=== PATIENT | female | born 1995 | race Caucasian/White ===

== ENCOUNTER 2019-05-25 15:27 | Emergency (ER) | payer BC ==
[2019-05-25 15:41] VITALS: BP 127/83; PULSE 80; O2SAT 96
--- NOTE | 2019-05-25 15:57 | ERPHSYRPT ---
- History of Present Illness Time Seen by Provider: 05/25/19 15:42 Source: patient Exam Limitations: no limitations Patient Subjective Stated Complaint: Pt was taking out the garbage and got cut with a piece of glass from a coffee pot on the right elbow, she stated that she feels like a piece is still in there, reports that her arm is numb Triage Nursing Assessment: Pt reports that her arm is more uncomfortable than pain, vitals wnl, doesn't appear to be in any distress, pulses normal Physician History: 23-year-old white female arrives with complaint of laceration to her right elbow since just prior to arrival she states she was taking out garbage and she lacerated her right elbow she's not sure she has glass in her elbow or not. He states he has tingling in her right arm like she hit her funny bone. She's not had any problems moving she can feel all of her fingers move all her fingers hand wrist elbow. Past medical history negative. Past surgical history negative. Patient does state she has a Mirina in place Occurred: just prior to arrival Method of Injury: other (lacerated her elbow on glass taking out the garbage.) Severity of Pain-Max: mild Severity of Pain-Current: mild Extremities Pain Location: elbow: right Modifying Factors: Improves With: nothing Associated Symptoms: none Allergies/Adverse Reactions: fentanyl Allergy (Verified 05/25/19 15:41) Home Medications: Sertraline HCl 50 mg PO DAILY 05/25/19 [History] Spironolactone 50 mg PO BID 05/25/19 [History] Hx Tetanus, Diphtheria Vaccination/Date Given: (highschool) - Review of Systems Constitutional: No Fever, No Chills Eyes: No Symptoms Ears, Nose, & Throat: No Symptoms Respiratory: No Cough, No Dyspnea Cardiac: No Chest Pain, No Edema, No Syncope Abdominal/Gastrointestinal: No Abdominal Pain, No Nausea, No Vomiting, No Diarrhea Genitourinary Symptoms: No Dysuria Musculoskeletal: Other (laceration right elbow) Skin: No Rash Neurological: Parasthesia (paresthesia right arm), No Dizziness, No Focal Weakness, No Sensory Changes Psychological: No Symptoms Endocrine: No Symptoms All Other Systems: Reviewed and Negative - Past Medical History Pertinent Past Medical History: Yes Psycho-Social History: Anxiety Female Reproductive Disorders: Other - Past Surgical History Past Surgical History: Yes Female Surgical History: Hysterectomy - Social History Smoking Status: Never smoker Exposure to second hand smoke: No Drug Use: none Patient Lives Alone: No - Female History Hx Now: No (lanettena) - Nursing Vital Signs Nursing Vital Signs: Initial Vital Signs Temperature 98.0 F 05/25/19 15:34 Pulse Rate 80 05/25/19 15:34 Blood Pressure 127/83 05/25/19 15:34 O2 Sat by Pulse Oximetry 96 05/25/19 15:34 Pain Scale Pain Intensity 4 - Physical Exam General Appearance: alert Eyes, Ears, Nose, Throat Exam: moist mucous membranes Neck Exam: non-tender, supple Cardiovascular/Respiratory Exam: chest non-tender, normal breath sounds, regular rate/rhythm, no respiratory distress Abdominal Exam: non-tender, No guarding Back Exam: normal inspection, No vertebral tenderness Shoulder Exam: normal inspection, non-tender, no evidence of injury, normal ROM Elbow/Forearm Exam: No normal inspection (lless than 1 cm fairly superficial llaceration right elbow just medial to olecranon, no foreign body noted. Full range of motion right elbow wrist hand ) Wrist Exam: normal inspection, non-tender, no evidence of injury, normal ROM Hand Exam: normal inspection, non-tender, no evidence of injury, normal ROM DTR - Upper Extremity Exam: tricep (R): 2+, tricep (L): 2+ Neuro/Tendon Exam: normal sensation, normal motor functions, normal tendon functions, no evidence tendon injury, No motor deficit, No sensory deficit Mental Status Exam: alert, oriented x 3, cooperative Skin Exam: other (less than 1 cm fairly superficial laceration right arm just medial to the olecranon) SpO2 Interpretation: normal (96%) SpO2: 96 - Course Nursing assessment & vital signs reviewed: Yes - Radiology Exams Right Elbow X-ray Interpretation: Interpreted by me (xray right elbow: no foreign body noted ) Ordered Tests: Active Orders 24 hr Category Date Time Status Wound Care STAT Care 05/25/19 16:19 Active ELBOW (MINIMUM 3 VIEWS) Stat Exams 05/25/19 15:49 Taken - Progress Progress: improved Progress Note: 05/25/19 15:54 23-year-old white female arrives with complaint of laceration to her right elbow she states she suffered this when taking out the garbage. She states that she is having some paresthesia to her right arm after striking her elbow feels like she hit her funny bone. Patient with full range of motion to the right upper extremity dietary assistant strength is intact 5 over 5 in the right. Sensation is intact to all fingers radial and ulnar pulses are intact two over four good capillary refill to all fingers. Patient does feel like she has a decent glass in her elbow however cannot feel this. She has a fairly superficial laceration less than 1 cm on her right posterior elbow medial to the olecranon. Will x-ray the patient's right elbow to rule out foreign body. Will have nurse clean the area and apply asteristrip dtap will be updated. 05/25/19 16:20 - Departure Departure Disposition: Home Clinical Impression: Laceration of right elbow Qualifiers: Encounter type: initial encounter Qualified Code(s): S51.011A - Laceration without foreign body of right elbow, initial encounter Condition: Fair Critical Care Time: No Referrals: CYRUS HARRIS SUPPLY PLANNER [Primary Care Provider] - Additional Instructions: Return home. Keep area clean and dry. Followup with your family DrMoy or return if problems.
[2019-05-25] MEDS ORDERED: Adacel Vial IM ONE ×2 (16:19→16:53)
--- NOTE | 2019-05-25 16:21 | XRAY ---
Indication: Laceration. Comparison: None 3 views of the right elbow obtained. No bony, articular, or soft tissue abnormalities.
== END 2019-05-25 17:29 | disposition home or self-care (01) ==
LOC: ED 15:27
DX: S51.011A Laceration without foreign body of right elbow, initial encounter (principal); W25.XXXA Contact with sharp glass, initial encounter; Y93.89 Activity, other specified
CPT/HCPCS: 73080; 90471; 90715; 99283

== ENCOUNTER 2019-11-28 18:33 | Emergency (ER) | payer BC ==
[2019-11-28 18:51] VITALS: O2SAT 96
[2019-11-28] MEDS ORDERED: Sodium Chloride 0.9% 1000 ML 1,000 ML IV STA (18:58)
--- NOTE | 2019-11-28 19:24 | ERPHSYRPT ---
- History of Present Illness Time Seen by Provider: 11/28/19 19:01 Patient Subjective Stated Complaint: Pt states "for the past 7 days I have had diarrhea and some nausea and vomiting. Now the pain in my belly has gone into my back kind of where my kidney is on the right side." Triage Nursing Assessment: Pt presented alert and oriented X 3, skin pwd Pt ambulates with an upright steady gait, able to speak in clear full sentences pt in no apparent respiratory distress. Physician History: 24 yo F woth initial epigastric pain 1 wk ago. Fever initially with N,V and D. pain now in R abd and flank. Patient denies any nominal surgery other than a C- section. She has had a TNA and nasal reconstruction. Timing/Duration: week(s) (1), worse Activities at Onset: none Quality: cramping, stabbing Abdominal Pain Onset Location: epigastric Pain Radiation: RUQ, RLQ, flank (Right) Severity of Pain-Max: moderate Severity of Pain-Current: moderate Modifying Factors: Improves With: nothing Associated Symptoms: diarrhea, fever/chills, nausea, vomiting Previous symptoms: no prior history Allergies/Adverse Reactions: fentanyl Allergy (Verified 05/25/19 15:41) Home Medications: Sertraline HCl 50 mg PO DAILY 05/25/19 [History] Spironolactone 50 mg PO BID 05/25/19 [History] Hx Tetanus, Diphtheria Vaccination/Date Given: Yes Hx Influenza Vaccination/Date Given: Yes Hx Pneumococcal Vaccination/Date Given: No Immunizations Up to Date: Yes - Review of Systems Constitutional: No Fever, No Chills Eyes: No Symptoms Ears, Nose, & Throat: No Symptoms Respiratory: No Cough, No Dyspnea Cardiac: No Chest Pain, No Edema, No Syncope Abdominal/Gastrointestinal: Abdominal Pain, Nausea, Vomiting, Diarrhea Genitourinary Symptoms: No Dysuria Musculoskeletal: No Back Pain, No Neck Pain Skin: No Rash Neurological: No Dizziness, No Focal Weakness, No Sensory Changes Psychological: No Symptoms Endocrine: No Symptoms All Other Systems: Reviewed and Negative - Past Medical History Pertinent Past Medical History: Yes Neurological History: No Pertinent History ENT History: No Pertinent History Cardiac History: No Pertinent History Respiratory History: No Pertinent History Endocrine Medical History: No Pertinent History Musculoskeletal History: No Pertinent History GI Medical History: No Pertinent History History: No Pertinent History Psycho-Social History: Anxiety Female Reproductive Disorders: Other Other Medical History: PCOS - Past Surgical History Past Surgical History: Yes Female Surgical History: Hysterectomy Other Surgical History: c section. tonsils and adnoids. - Social History Smoking Status: Never smoker Exposure to second hand smoke: Yes Drug Use: none Patient Lives Alone: No - Female History Hx Last Menstrual Period: mirena Hx Now: (unknown) - Nursing Vital Signs Nursing Vital Signs: Initial Vital Signs Temperature 98.2 F 11/28/19 18:46 Pulse Rate 104 H 11/28/19 18:46 Respiratory Rate 18 11/28/19 18:46 Blood Pressure 141/90 11/28/19 18:46 O2 Sat by Pulse Oximetry 96 11/28/19 18:46 Pain Scale Pain Intensity 7 - Physical Exam General Appearance: no apparent distress, alert Eye Exam: PERRL/EOMI, eyes nml inspection Ears, Nose, Throat Exam: normal ENT inspection, pharynx normal, moist mucous membranes Neck Exam: normal inspection, non-tender, supple, full range of motion Respiratory Exam: normal breath sounds, lungs clear, No respiratory distress Cardiovascular Exam: regular rate/rhythm, normal heart sounds Gastrointestinal/Abdomen Exam: tenderness (R side of abd and R flank), mass, guarding, rebound Pelvic Exam: not done Back Exam: normal inspection, normal range of motion, No CVA tenderness, No vertebral tenderness Extremity Exam: normal inspection, normal range of motion, pelvis stable Neurologic Exam: alert, oriented x 3, cooperative, normal mood/affect, nml cerebellar function, sensation nml, No motor deficits Skin Exam: normal color, warm, dry SpO2: 96 - Course Nursing assessment & vital signs reviewed: Yes - Radiology Exams Chest X-ray Interpretation: Interpreted by me, Negative - CT Exams Abdomen/Pelvis CT Interpretation: No appendicitis, Other (CT other than the incidental finding of a 3 cm left ovarian cyst IUD in situ is negative Dr. Ramírez) Ordered Tests: Active Orders 24 hr Category Date Time Status IV Insertion STAT Care 11/28/19 18:58 Active ABDOMEN AND PELVIS W/0 CONTRAS [CT] Stat Exams 11/28/19 18:58 Taken CHEST 1 VIEW (PORTABLE) Stat Exams 11/28/19 18:58 Taken AMYLASE Stat Lab 11/28/19 19:35 Completed CBC W DIFF Stat Lab 11/28/19 19:35 Completed CMP Stat Lab 11/28/19 19:35 Completed HCG QUALITATIVE,SERUM Stat Lab 11/28/19 19:35 Completed LIPASE Stat Lab 11/28/19 19:35 Completed Lactic Acid Stat Lab 11/28/19 20:15 Completed PROTIME WITH INR Stat Lab 11/28/19 19:35 Completed UA W/RFX UR CULTURE Stat Lab 11/28/19 19:16 Completed Medication Summary Discontinued Medications Generic Name Dose Route Start Last Admin Trade Name Freq PRN Reason Stop Dose Admin Sodium Chloride 1,000 mls @ 999 mls/hr 11/28/19 18:58 11/28/19 19:51 Sodium Chloride 0.9% 1000 Ml IV 11/28/19 19:58 999 mls/hr .Q1H1M STA Administration Sodium Chloride Confirm 11/28/19 19:50 Sodium Chloride 0.9% 1000 Ml Administered 11/28/19 19:51 Dose 1,000 mls @ ud .ROUTE .STK-MED ONE Ondansetron HCl 4 mg 11/28/19 20:26 11/28/19 20:43 Zofran 4 Mg/2 Ml Vial IV 11/28/19 20:27 4 mg STAT ONE Administration Ondansetron HCl Confirm 11/28/19 20:42 Zofran 4 Mg/2 Ml Vial Administered 11/28/19 20:43 Dose 4 mg .ROUTE .STK-MED ONE Lab/Rad Data: Laboratory Result Diagrams 11/28/19 19:35 11/28/19 19:35 Laboratory Results 11/28/19 11/28/19 11/28/19 Range/Units 20:15 19:35 19:35 WBC (4.0-10.5) K/mm3 RBC (4.1-5.4) M/mm3 Hgb (12.0-16.0) gm/dl Hct (35-47) % MCV (78-100) fl MCH (26-32) pg MCHC (32-36) g/dl RDW (11.5-14.0) % Plt Count (150-450) K/mm3 MPV (7.5-11.0) fl Gran % (36.0-66.0) % Eos # (Auto) (0-0.5) Absolute Lymphs (auto) (1.0-4.6) Absolute Monos (auto) (0.0-1.3) Lymphocytes % (24.0-44.0) % Monocytes % (0.0-12.0) % Eosinophils % (0.00-5.0) % Basophils % (0.0-0.4) % Absolute Granulocytes (1.4-6.9) Basophils # (0-0.4) PT 15.2 H (9.95-12.35) SECONDS INR 1.34 (0.8-3.0) Sodium (137-145) mmol/L Potassium (3.5-5.1) mmol/L Chloride (98-107) mmol/L Carbon Dioxide (22-30) mmol/L Anion Gap (5-15) MEQ/L BUN (7-17) mg/dL Creatinine (0.52-1.04) mg/dL Estimated GFR ML/MIN Glucose (74-106) mg/dL Lactic Acid 0.9 (0.4-2.0) Calcium (8.4-10.2) mg/dL Total Bilirubin (0.2-1.3) mg/dL AST (14-36) U/L ALT (0-35) U/L Alkaline Phosphatase (38-126) U/L Serum Total Protein (6.3-8.2) g/dL Albumin (3.5-5.0) g/dL Amylase (30-110) U/L Lipase (23-300) U/L Serum , Qual NEGATIVE (Negative) Urine Color (YELLOW) Urine Appearance (CLEAR) Urine pH (5-6) Ur Specific [place] (1.005-1.025) Urine Protein (Negative) Urine Ketones (NEGATIVE) Urine Blood (0-5) Gagandeep/ul Urine Nitrite (NEGATIVE) Urine Bilirubin (NEGATIVE) Urine Urobilinogen (0-1) mg/dL Ur Leukocyte Esterase (NEGATIVE) Urine WBC (Auto) (0-5) /HPF Urine RBC (Auto) (0-2) /HPF U Epithel Cells (Auto) (FEW) /HPF Urine Bacteria (Auto) (NEGATIVE) /HPF Urine Mucus (Auto) (NEGATIVE) /HPF Urine Culture Reflexed (NO) Urine Glucose (NEGATIVE) mg/dL 11/28/19 11/28/19 11/28/19 Range/Units 19:35 19:35 19:16 WBC 10.7 H (4.0-10.5) K/mm3 RBC 4.20 (4.1-5.4) M/mm3 Hgb 13.0 (12.0-16.0) gm/dl Hct 38.3 (35-47) % MCV 91.2 (78-100) fl MCH 31.0 (26-32) pg MCHC 33.9 (32-36) g/dl RDW 12.1 (11.5-14.0) % Plt Count 243 (150-450) K/mm3 MPV 10.0 (7.5-11.0) fl Gran % 81.6 H (36.0-66.0) % Eos # (Auto) 0.01 (0-0.5) Absolute Lymphs (auto) 1.54 (1.0-4.6) Absolute Monos (auto) 0.41 (0.0-1.3) Lymphocytes % 14.4 L (24.0-44.0) % Monocytes % 3.8 (0.0-12.0) % Eosinophils % 0.1 (0.00-5.0) % Basophils % 0.1 (0.0-0.4) % Absolute Granulocytes 8.75 H (1.4-6.9) Basophils # 0.01 (0-0.4) PT (9.95-12.35) SECONDS INR (0.8-3.0) Sodium 141 (137-145) mmol/L Potassium 4.2 (3.5-5.1) mmol/L Chloride 103 (98-107) mmol/L Carbon Dioxide 27 (22-30) mmol/L Anion Gap 14.7 (5-15) MEQ/L BUN 9 (7-17) mg/dL Creatinine 0.46 L (0.52-1.04) mg/dL Estimated GFR > 60.0 ML/MIN Glucose 93 (74-106) mg/dL Lactic Acid (0.4-2.0) Calcium 10.3 H (8.4-10.2) mg/dL Total Bilirubin 1.90 H (0.2-1.3) mg/dL AST 27 (14-36) U/L ALT 36 H (0-35) U/L Alkaline Phosphatase 63 (38-126) U/L Serum Total Protein 8.5 H (6.3-8.2) g/dL Albumin 5.0 (3.5-5.0) g/dL Amylase 62 (30-110) U/L Lipase 33 (23-300) U/L Serum , Qual (Negative) Urine Color YELLOW (YELLOW) Urine Appearance CLEAR (CLEAR) Urine pH 6.0 (5-6) Ur Specific [place] 1.013 (1.005-1.025) Urine Protein NEGATIVE (Negative) Urine Ketones MODERATE (NEGATIVE) Urine Blood SMALL (0-5) Gagandeep/ul Urine Nitrite NEGATIVE (NEGATIVE) Urine Bilirubin NEGATIVE (NEGATIVE) Urine Urobilinogen NEGATIVE (0-1) mg/dL Ur Leukocyte Esterase NEGATIVE (NEGATIVE) Urine WBC (Auto) 0-2 (0-5) /HPF Urine RBC (Auto) 0-2 (0-2) /HPF U Epithel Cells (Auto) RARE (FEW) /HPF Urine Bacteria (Auto) NONE (NEGATIVE) /HPF Urine Mucus (Auto) SLIGHT (NEGATIVE) /HPF Urine Culture Reflexed NO (NO) Urine Glucose NEGATIVE (NEGATIVE) mg/dL - Progress Progress: improved - Departure Departure Disposition: Home Clinical Impression: Biliary colic Condition: Stable Critical Care Time: No Referrals: CYRUS HARRIS, BRIM RAISER [Primary Care Provider] - Additional Instructions: Patient will be scheduled by radiology to return for an ultrasound of the gallbladder in the a.m. Report will be sent to Dr Arriaza. Prescriptions: Ondansetron HCl [Zofran] 4 mg PO TID PRN #10 tablet PRN Reason: Nausea/Vomiting PANTOPRAZOLE 40 mg Tablet [Protonix 40MG Tablet] 40 mg PO QAM 30 Days #30 tab
[2019-11-28 19:26] LABS: Appearance CLEAR (CLEAR); Bilirubin NEGATIVE (NEGATIVE); Blood SMALL Ery/ul (0-5); Epithelial Cells RARE /HPF (FEW); Glucose NEGATIVE (NEGATIVE); Ketones MODERATE (NEGATIVE); Leukocyte Esterase NEGATIVE (NEGATIVE); Mucus SLIGHT /HPF (NEGATIVE); Nitrite NEGATIVE (NEGATIVE); Protein,Urine Dip NEGATIVE (Negative); RBC 0-2 /HPF (0-2); Specific Gravity 1.013 (1.005-1.025); Urobilinogen NEGATIVE mg/dL (0-1); WBC 0-2 /HPF (0-5)
[2019-11-28 19:46] LABS: Absolute Neutrophil Ct (ANC) 8.75 (1.4-6.9); BASOPHIL % 0.1 % (0.0-0.4); Basophil (Absolute #) 0.01 (0-0.4); Eosinophil % 0.1 % (0.00-5.0); Eosinophil (Absolute #) 0.01 (0-0.5); Hematocrit 38.3 % (35-47); Lymphocyte (Absolute #) 1.54 (1.0-4.6); Lymphocytes % 14.4 % (24.0-44.0); Mean Cell Volume 91.2 fl (78-100); Mean Corpuscular Hgb Concent. 33.9 g/dl (32-36); Monocyte (Absolute #) 0.41 (0.0-1.3); Monocytes % 3.8 % (0.0-12.0); Neutrophil % 81.6 % (36.0-66.0); Platelet Count 243 K/mm3 (150-450); Red Cell Distribution Width 12.1 % (11.5-14.0); White Blood Count 10.7 K/mm3 (4.0-10.5)
[2019-11-28] MEDS ORDERED: Sodium Chloride 0.9% 1000 ML 1,000 ML ONE (19:50)
[2019-11-28 19:51] LABS: ALKALINE PHOSPHATASE 63 U/L (38-126); AMYLASE 62 U/L (30-110); ANION GAP 14.7 MEQ/L (5-15); BLOOD UREA NITROGEN 9 mg/dL (7-17); CHLORIDE 103 mmol/L (98-107); Calcium 10.3 mg/dL (8.4-10.2); Carbon Dioxide 27 mmol/L (22-30); Creatinine 1 0.46 mg/dL (0.52-1.04); Glucose 93 mg/dL (74-106); LIPASE 33 U/L (23-300); Potassium 4.2 mmol/L (3.5-5.1); SGOT/AST 27 U/L (14-36); SGPT/ALT 36 U/L (0-35); SODIUM 141 mmol/L (137-145); Total Protein 8.5 g/dL (6.3-8.2)
[2019-11-28 19:57] LABS: INR 1.34 (0.8-3.0); PROTIME 15.2 SECONDS (9.95-12.35)
[2019-11-28] MEDS ORDERED: Zofran 4 MG/2 ML VIAL IV ONE (20:26)
[2019-11-28] MEDS ORDERED: Zofran 4 MG/2 ML VIAL ONE (20:42)
[2019-11-28 21:26] VITALS: BP 119/76; PULSE 98
--- NOTE | 2019-11-29 08:42 | XRAY ---
Indication: Pain. Comparison: None Portable chest demonstrates normal heart, lungs, and bony thorax.
--- NOTE | 2019-11-29 08:44 | XRAY ---
Indication: Right upper quadrant pain, nausea, vomiting, and elevated WBC. Multiple contiguous axial images obtained through the abdomen and pelvis without contrast as ordered. Comparison: None Lung bases are clear. Heart is not enlarged. Noncontrasted stomach and bowel loops appear nonobstructed normal appendix. Uterus demonstrates IUD in situ. 3 cm left ovary cyst. No free fluid/air. A few calcified splenic granulomas. Remaining liver, gallbladder, pancreas, spleen, adrenal glands, kidneys, ureters, bladder, uterus, and aorta appear unremarkable for noncontrast exam. Osseous structures intact. Impression: 1. 3 cm left ovary cyst, IUD in situ, and calcified splenic granulomas. 2. Remaining CT abdomen/pelvis without contrast exam is negative.
== END 2019-11-28 21:13 | disposition home or self-care (01) ==
LOC: ED 18:33
DX: K80.50 Calculus of bile duct without cholangitis or cholecystitis without obstruction (principal)
CPT/HCPCS: 36000; 36415; 71045; 74176; 80053; 81001; 81025; 82150; 83605; 83690; 85025; 85610; 96360; 96374; 99284; J2405

== ENCOUNTER 2021-05-03 11:18 | Emergency (ER) | payer BC ==
--- NOTE | 2021-05-03 11:30 | ERPHSYRPT ---
- History of Present Illness Time Seen by Provider: 05/03/21 11:30 Source: patient Exam Limitations: no limitations Patient Subjective Stated Complaint: lac to L palm Physician History: This is a 25-year-old right-handed female who accidentally cut the palm of her left hand with a knife while cutting adin. It occurred right prior to arrival. Her tetanus status is up-to-date. She is Timing/Duration: today Quality: painful (Mildly) Severity: mild Location: hands (Palm of left hand) Possible Causes: other (Accidental laceration) Associated Symptoms: denies symptoms Allergies/Adverse Reactions: fentanyl Allergy (Verified 05/03/21 11:28) iodine Adverse Reaction (Intermediate, Verified 05/03/21 11:28) Hives Home Medications: Vits W-Ca,Fe,FA(<1Mg) [] 1 each PO DAILY 05/03/21 [History] Hx Tetanus, Diphtheria Vaccination/Date Given: Yes Hx Influenza Vaccination/Date Given: Yes Hx Pneumococcal Vaccination/Date Given: No Immunizations Up to Date: Yes Travel Risk - International Travel Have you traveled outside of the country in past 3 weeks: No - Coronavirus Screening Are you exhibiting any of the following symptoms?: No Close contact with a COVID-19 positive Pt in past 14-21 Days: No - Vaccine Status Have you recieved a Covid-19 vaccination: No - Review of Systems Constitutional: No Symptoms Eyes: No Symptoms Ears, Nose, & Throat: No Symptoms Respiratory: No Symptoms Cardiac: No Symptoms Abdominal/Gastrointestinal: No Symptoms Genitourinary Symptoms: No Symptoms Musculoskeletal: Injury (Palm of left hand) Skin: Other (Laceration to palm of left hand) Neurological: No Symptoms Psychological: No Symptoms Endocrine: No Symptoms Hematologic/Lymphatic: No Symptoms Immunological/Allergic: No Symptoms All Other Systems: Reviewed and Negative - Past Medical History Pertinent Past Medical History: Yes Neurological History: No Pertinent History ENT History: No Pertinent History Cardiac History: No Pertinent History Respiratory History: No Pertinent History Endocrine Medical History: No Pertinent History Musculoskeletal History: No Pertinent History GI Medical History: No Pertinent History History: No Pertinent History Psycho-Social History: Anxiety Female Reproductive Disorders: Other Other Medical History: PCOS - Past Surgical History Past Surgical History: Yes Female Surgical History: Section Other Surgical History: c section. tonsils and adnoids. - Social History Smoking Status: Never smoker Exposure to second hand smoke: Yes Drug Use: none Patient Lives Alone: No - Female History Hx Now: Yes Gestational Age: 32 weeks - Nursing Vital Signs Nursing Vital Signs: Initial Vital Signs Temperature 98.6 F 05/03/21 11:24 Pulse Rate 101 H 05/03/21 11:24 Respiratory Rate 20 05/03/21 11:24 Blood Pressure 140/93 05/03/21 11:24 O2 Sat by Pulse Oximetry 98 05/03/21 11:24 Pain Scale Pain Intensity 0 - Physical Exam General Appearance: no apparent distress, alert, anxiety Eye Exam: PERRL/EOMI, eyes nml inspection Ears, Nose, Throat Exam: normal ENT inspection, moist mucous membranes Neck Exam: normal inspection, non-tender, supple, full range of motion Respiratory Exam: airway intact, No chest tenderness, No respiratory distress Cardiovascular Exam: regular rate/rhythm, normal heart sounds, normal peripheral pulses Gastrointestinal/Abdomen Exam: No tenderness Pelvic Exam: not done Rectal Exam: not done Back Exam: normal inspection, normal range of motion, CVA tenderness Extremity Exam: normal range of motion, pelvis stable Neurologic Exam: alert, oriented x 3, cooperative, band director II-XII nml as tested, normal mood/affect, nml cerebellar function, nml station & gait Skin Exam: laceration (1 cm palm of left hand) Lymphatic Exam: No adenopathy SpO2 Interpretation: normal SpO2: 98 O2 Delivery: Room Air Procedures - Laceration/Wound Repair Left Volar Hand Time of Procedure: 11:55 Wound Location: Left, hand (Palmar aspect) Wound Length (cm): 1 Wound's Depth, Shape: superficial, linear Wound Explored: clean (No foreign body. Examination performed in bloodless field to the base.) Irrigated: Yes Hibiclens Prep: Yes Anesthesia: 2% Lidocaine Volume Anesthetic (ccs): 1 Wound Repaired With: sutures Suture Size/Type: 4-0, nylon Number of Sutures: 2 Layer Closure?: No Sterile Dressing Applied?: Yes - Course Nursing assessment & vital signs reviewed: Yes - Progress Progress: improved Counseled pt/family regarding: diagnosis, need for follow-up - Departure Departure Disposition: Home Clinical Impression: Laceration of left hand Condition: Stable Critical Care Time: No Referrals: NOHEMI HURD MD [Primary Care Provider] - Additional Instructions: Keep laceration repair site dry until tomorrow evening. Tomorrow evening, may remove bandage and wash daily with soap and water. After each cleansing may apply thin layer of antibiotic ointment and cover with bandage. Suture removal in 8 to 10 days.
[2021-05-03 12:06] VITALS: BP 121/89; PULSE 111
[2021-05-03 12:07] VITALS: O2SAT 98
== END 2021-05-03 12:13 | disposition home or self-care (01) ==
LOC: ED 11:18
DX: S61.412A Laceration without foreign body of left hand, initial encounter (principal); W26.0XXA Contact with knife, initial encounter; Y93.G1 Activity, food preparation and clean up; Y92.9 Unspecified place or not applicable
CPT/HCPCS: 12001; 99283

== ENCOUNTER 2022-11-17 13:15 | Emergency (ER) | payer BC ==
--- NOTE | 2022-11-17 13:17 | ERPHSYRPT ---
- History of Present Illness Time Seen by Provider: 11/17/22 13:17 Source: patient Exam Limitations: no limitations Physician History: This is a 27-year-old white female who is a patient of and presents with left flank pain described as burning sharp and stabbing that radiates to the left side under her breast. She is never had this kind of pain before. She also had associated dysuria. The dysuria has improved but the left flank pain and its radiation to the left anterior chest has not improved. She has not noticed a rash. She denies any type of fall or trauma to the area. She also had associated nausea but no vomiting when the pain becomes intense. It is intermittent. Patient states that she does not want any type of narcotics. Occurred: yesterday Quality: intermittent, sharpness, stabbing Severity of Pain-Max: moderate Severity of Pain-Current: moderate Modifying Factors: Improves With: nothing Associated Symptoms: nausea, No chest discomfort, No chest pain, No dyspnea, No short of breath Allergies/Adverse Reactions: fentanyl Allergy (Verified 11/17/22 13:37) Hx Tetanus, Diphtheria Vaccination/Date Given: Yes Hx Influenza Vaccination/Date Given: Yes Hx Pneumococcal Vaccination/Date Given: No Travel Risk - International Travel Have you traveled outside of the country in past 3 weeks: No - Coronavirus Screening Are you exhibiting any of the following symptoms?: No Close contact with a COVID-19 positive Pt in past 14-21 Days: No - Vaccine Status Have you recieved a Covid-19 vaccination: No - Review of Systems Constitutional: No Symptoms Eyes: No Symptoms Ears, Nose, & Throat: No Symptoms Respiratory: No Symptoms Cardiac: No Symptoms Abdominal/Gastrointestinal: Nausea, No Abdominal Pain, No Vomiting, No Diarrhea, No Constipation Genitourinary Symptoms: Dysuria, Flank Pain (Left) Musculoskeletal: No Symptoms Skin: No Symptoms Neurological: No Symptoms Psychological: No Symptoms Endocrine: No Symptoms Hematologic/Lymphatic: No Symptoms Immunological/Allergic: No Symptoms All Other Systems: Reviewed and Negative - Past Medical History Pertinent Past Medical History: Yes Neurological History: No Pertinent History ENT History: No Pertinent History Cardiac History: No Pertinent History Respiratory History: No Pertinent History Endocrine Medical History: No Pertinent History Musculoskeletal History: No Pertinent History GI Medical History: No Pertinent History History: No Pertinent History Psycho-Social History: Anxiety Female Reproductive Disorders: Other Other Medical History: PCOS - Past Surgical History Past Surgical History: Yes Female Surgical History: Section Other Surgical History: c section. tonsils and adnoids. - Social History Smoking Status: Never smoker Exposure to second hand smoke: Yes Drug Use: none Patient Lives Alone: No - Nursing Vital Signs Nursing Vital Signs: Initial Vital Signs Temperature 97.5 F 11/17/22 13:24 Pulse Rate 90 11/17/22 13:24 Blood Pressure 114/87 11/17/22 13:24 O2 Sat by Pulse Oximetry 98 11/17/22 13:24 Pain Scale Pain Intensity 7 - Physical Exam General Appearance: mild distress, alert, anxiety Eyes, Ears, Nose, Throat Exam: normal ENT inspection, moist mucous membranes Neck Exam: normal inspection, non-tender, supple, full range of motion Cardiovascular/Respiratory Exam: chest non-tender, normal breath sounds, regular rate/rhythm, heart sounds normal, no ecchymosis, no respiratory distress Abdominal Exam: non-tender Back Exam: normal inspection Shoulder Exam: normal inspection Elbow/Forearm Exam: normal inspection Wrist Exam: normal inspection, non-tender, no evidence of injury, normal ROM Hand Exam: normal inspection, non-tender, no evidence of injury, normal ROM Neuro/Tendon Exam: normal sensation, normal motor functions, normal tendon functions, responds to pain, no evidence tendon injury Mental Status Exam: alert, oriented x 3, cooperative Skin Exam: normal color, warm, dry SpO2 Interpretation: normal O2 Delivery: Room Air Ordered Tests: Active Orders 24 hr Category Date Time Status HCG,QUALITATIVE URINE Stat Lab 11/17/22 13:47 Completed UA W/RFX UR CULTURE Stat Lab 11/17/22 13:47 Completed Lab/Rad Data: Laboratory Results 11/17/22 11/17/22 Range/Units 13:47 13:47 Urine Color Yellow (Yellow) Urine Appearance Clear (Clear) Urine pH 7.0 (4.6-8.0) Ur Specific Dolliver <=1.005 (1.005-1.030) Urine Protein Negative (Negative) Urine Glucose (UA) Negative (Negative) mg/dL Urine Ketones Negative (Negative) Urine Blood Negative (Negative) Urine Nitrite Negative (Negative) Urine Bilirubin Negative (Negative) Urine Urobilinogen 0.2 (0.2) mg/dL Ur Leukocyte Esterase Trace A (Negative) U Hyaline Cast (Auto) NONE SEEN (0-2) /LPF Urine Microscopic RBC 0-2 (0-5) /HPF Urine Microscopic WBC 0-2 (0-5) /HPF Ur Epithelial Cells Rare (None Seen) /HPF Urine Bacteria None Seen (None Seen) /HPF Urine Culture Reflexed NO (NO) Urine HCG, Qual NEGATIVE (Negative) - Progress Progress: pain not gone completely, re-examined Progress Note: 11/17/22 14:53 Medical decision making: This patient's medical issue is of low complexity. I basis on the history obtained from the patient, physical exam I performed and the results of the labs that I ordered. The labs I ordered was based on the patient's symptoms and complaints. Patient appears to have an early urinary tract infection and has muscle skeletal pain as well. She does not appear to have any rash in the area of her discomfort and I think shingles is less likely. We will treat her muscle skeletal pain as well as start her on antibiotics. Counseled pt/family regarding: lab results, diagnosis, need for follow-up - Departure Departure Disposition: Home Clinical Impression: UTI (urinary tract infection), Musculoskeletal pain Condition: Stable Critical Care Time: No Referrals: NOHEMI HURD MD [ACTIVE STAFF] - Follow up/PCP as directed Additional Instructions: Drink plenty of fluids. Take your medication as prescribed. Follow-up with your primary care provider for persistent symptoms. Add Tylenol 650 mg orally every 4-6 hours as needed for pain control Prescriptions: Cephalexin Mh 500 mg [Keflex 500 mg] 500 mg PO TID #15 cap Naproxen 500 mg [Naprosyn 500 MG] 500 mg PO BID #10 tablet Orphenadrine Citrate 100 mg [Norflex 100 MG Tablet] 100 mg PO BID #10 tab
[2022-11-17 14:25] LABS: Appearance Clear (Clear); Bacteria None Seen /HPF (None Seen); Bilirubin Negative (Negative); Blood Negative (Negative); Epithelial Cells Rare /HPF (None Seen); Glucose, Urine Negative (Negative); Hyaline Casts NONE SEEN /LPF (0-2); Ketones Negative (Negative); Leukocyte Esterase Trace (Negative); Nitrite Negative (Negative); Protein,Urine Dip Negative (Negative); RBC 0-2 /HPF (0-5); Specific Gravity <=1.005 (1.005-1.030); Urobilinogen 0.2 mg/dL (0.2); WBC 0-2 /HPF (0-5)
[2022-11-17 14:33] VITALS: O2SAT 100
[2022-11-17 14:37] LABS: ADD URINE CULTURE? NO (NO)
[2022-11-17 15:17] VITALS: BP 135/86; PULSE 85
== END 2022-11-17 15:17 | disposition home or self-care (01) ==
LOC: ED 13:15
DX: N39.0 Urinary tract infection, site not specified (principal); R10.9 Unspecified abdominal pain; R30.0 Dysuria; R11.0 Nausea; Z28.310 Unvaccinated for COVID-19
CPT/HCPCS: 81001; 81025; 99282

== ENCOUNTER 2023-06-29 13:05 | Day surgery (SDC) | payer BC ==
[~2023-06-29 13:05] MED LIST: Decadron 4 MG PO SCH; NEURONTIN PO SCH; TYLENOL EXTRA STRENGTH 500 MG PO SCH; celeBREX 100 MG PO SCH
[2023-06-29] MEDS ORDERED: Reglan 10 MG/2 ML IV ONE (13:47)
[2023-06-29] MEDS ORDERED: Pepcid 20 MG VIAL IV ONE (13:47)
[2023-06-29] MEDS ORDERED: Transderm Scop 1.5MG Patch TOP PRN (13:47)
[2023-06-29 13:50] LABS: HCG URINE TEST NEGATIVE (NEGATIVE)
[2023-06-29] MEDS ORDERED: TYLENOL EXTRA STRENGTH 500 MG ONE (13:55)
[2023-06-29] MEDS ORDERED: Lactated Ringers 1,000 ML IV SCH (14:00)
[2023-06-29] MEDS ORDERED: CEFAZOLIN 2 GM-D5W BAG** 2 GM/50 ML ML IV SCH (14:00)
[2023-06-29 14:11] VITALS: RESP 16
[2023-06-29 14:27] LABS: Hematocrit 40.6 % (35-47); Hemoglobin 13.5 g/dL (12.0-16.0); Mean Cell Volume 88.5 fL (78-100); Mean Corpuscular Hemoglobin 29.4 pg (26-32); Mean Corpuscular Hgb Concent. 33.3 g/dL (32-36); Mean Platelet Volume 9.8 fL (7.5-11.0); Platelet Count 262 x10^3/uL (150-450); Red Blood Count 4.59 x10^6/uL (4.1-5.4); Red Cell Distribution Width 11.9 % (11.5-14.0)
[2023-06-29 14:41] LABS: ALBUMIN 4.8 g/dL (3.5-5.0); ALKALINE PHOSPHATASE 75 U/L (38-126); ANION GAP 11.7 MEQ/L (5-15); BLOOD UREA NITROGEN 11 mg/dL (7-17); CHLORIDE 103 mmol/L (98-107); Calcium 9.3 mg/dL (8.4-10.2); Carbon Dioxide 28 mmol/L (22-30); Creatinine 1 0.47 mg/dL (0.52-1.04); EST GLOMERULAR FILTRATION RATE > 60.0 ML/MIN; Glucose 83 mg/dL (74-106); Potassium 4.1 mmol/L (3.5-5.1); SGOT/AST 33 U/L (14-36); SGPT/ALT 28 U/L (0-35); SODIUM 139 mmol/L (137-145); Total Protein 7.7 g/dL (6.3-8.2)
[2023-06-29] MEDS ORDERED: Decadron 4 MG INJ ONE ×2 (16:21)
[2023-06-29] MEDS ORDERED: Xylocaine-Mpf 2% 5 Ml Vial ONE (16:21)
[2023-06-29] MEDS ORDERED: TORAdol 30 mg Injection ONE (16:21)
[2023-06-29] MEDS ORDERED: SUBLIMAZE 100 MCG/2 ML ONE (16:21)
[2023-06-29] MEDS ORDERED: DEXMEDETOMIDINE 80 MCG/20ML-NS IV ONE (16:21)
[2023-06-29] MEDS ORDERED: Zemuron 100 MG/10 ML ONE (16:21)
[2023-06-29] MEDS ORDERED: BRIDION 200MG/2ML IV ONE (16:21)
[2023-06-29] MEDS ORDERED: Marcaine 0.5%/Epinephrine 10 ML ONE (16:21)
[2023-06-29] MEDS ORDERED: Zofran 4 MG/2 ML VIAL ONE (16:21)
[2023-06-29] MEDS ORDERED: DIPRIVAN 200 MG/20 ML IV ONE (16:21)
[2023-06-29] MEDS ORDERED: Epinephrine Preservative Free 1 MG/ML ONE (16:38)
[2023-06-29] MEDS ORDERED: Lactated Ringers 1,000 ML IV ONE (16:38)
[2023-06-29] MEDS ORDERED: PROPOFOL 1000 MG/100 ML IV ONE (16:58)
[2023-06-29] MEDS ORDERED: Versed 2 MG/2 ML Injection ONE (17:02)
[2023-06-29] MEDS ORDERED: BREVIBLOC 100 MG/10 ML IV ONE (17:10)
[2023-06-29] MEDS ORDERED: PHENYLEPHRINE HCL ONE (17:41)
[2023-06-29] MEDS ORDERED: Propofol 1000 mg/100 ml Bottle 100 ML IV ONE ×2 (18:29→18:33)
--- NOTE | 2023-06-29 19:42 | XRAY ---
Indication: Left lateral ankle stabilization. Intraoperative fluoroscopy provided for 1 minute 3 seconds. 70 digital spot images submitted for interpretation demonstrates manipulation of the ankle/foot. Correlate with intraoperative findings/report.
[2023-06-29 21:08] VITALS: BP 119/77; PULSE 101; TEMP 98.6; O2SAT 96
--- NOTE | 2023-06-30 09:59 | XRAY ---
One minute and 3 seconds of fluoroscopy was used in surgery for a left lateral ankle stabilization.
--- NOTE | 2023-06-30 12:18 | OP ---
SURGERY DATE/TIME: 06/29/2023 1720 PREOPERATIVE DIAGNOSES: 1) Left ankle effusion. 2) Left ankle pain. 3) Left subtalar joint effusion. 4) Left foot pain 5) Peroneal tendon tenosynovitis. 6) Chronic lateral ankle instability. POSTOPERATIVE DIAGNOSES: 1) Left ankle effusion. 2) Left ankle pain. 3) Left subtalar joint effusion. 4) Left foot pain 5) Peroneal tendon tenosynovitis. 6) Chronic lateral ankle instability. 7) Low lying peroneus brevis muscle belly left ankle. PROCEDURES: 1) Ankle arthroscopy with extensive synovectomy. 2) Subtalar joint arthroscopy with synovectomy. 3) Excision of peroneal tenosynovitis. 4) Excision of low lying peroneus brevis muscle belly. 5) Lateral ankle stabilization with Brook internal brace. SURGEON: Oliverio Hernandez DPM. ASSISTANT GOLF COACH: None. ANESTHESIA: General with a preoperative popliteal and saphenous block. See anesthesia report for details. HEMOSTASIS: Thigh tourniquet set to 300 mm of Mercury for approximately 55 total tourniquet minutes. ESTIMATED BLOOD LOSS: Minimal. MATERIALS: 4-0 Monocryl, 3-0 Nylon, 2.9 JuggerKnot with BroadBand to 2.9 Betta Link with two - 1.45 JuggerKnot for anterior talofibular ligament reconstruction. INJECTABLES: See anesthesia report for details. INDICATION FOR SURGERY: Aliza is a very pleasant 27-year-old female known to my service for injury that occurred back in late December to early January of this year. The patient indicates that she rolled her ankle and as a result had severe pain. She presented to a provider that diagnosed her with a lateral talar process and recommended immobilization in a CAM boot. Over the course of several weeks, the patient saw a nurse practitioner who continued recommending immobilization in the CAM boot. However, her pain has not subsided. At this time, she is approximately ten weeks from the date of the injury with no significant improvement of her pain. The patient was mobilized and CT scan was obtained. A lateral talar process was not found. However an MRI was then obtained demonstrating disruption of the lateral ankle ligaments, effusion of the ankle joint and peroneal tenosynovitis. At this time the patient wished to proceed with surgical intervention due to the fact that her pain was so severe and she had failed conservative management with another provider. At this time the patient understands all risks, benefits and complications of the surgical intervention including but not limited to infection, hematoma, seroma, possibility of nerve damage, possibility of delayed skin healing, nonskin healing, possibility of nonbone healing and possibility of delayed bone healing. There is also a possibility of deep vein thrombosis, pulmonary embolism and as a result as well as complex regional pain syndrome (CRPS) following the procedure as a result of surgical intervention. No guarantees were provided as to the outcome. Plenty of time was allowed for the patient to ask questions which were answered to her apparent satisfaction. It is with that we decided to proceed. DESCRIPTION OF PROCEDURE AND FINDINGS: The patient was brought into the OR and placed on the OR table in the supine position. At this time general anesthesia was administered. A popliteal and saphenous block were provided until the patient's leg was numb. From that standpoint a well-padded thigh tourniquet was applied and the tourniquet was set to 300 mm of Mercury. The left lower extremity was prepped and draped in typical sterile fashion and lowered onto the surgical field. At this time landmarks were identified including the lateral malleolus, medial malleolus, sinus tarsi and the palpable dell of the ankle joint. Landmarks were drawn out on the surface of the skin. Insufflation took place at the anteromedial aspect of the ankle joint where approximately 20 cc were injected for the ankle to dorsiflex and resistance was felt on the plunger. At this time an 11 blade was utilized to make an incision through the level of the skin. Blunt dissection was carried down with a curved mini hemostat puncturing through the capsule where the insufflation occurred. The trocar and blunt obturator were introduced into the anteromedial portal. The obturator was then removed and the 30 degree 4.0 mm arthroscopic camera was introduced into the site. Immediately under inspection of the joint, there was visualization of a significant amount of hemorrhagic synovitis and constricture bands at majority of the lateral compartment and anterior compartment of the ankle. Under direct visualization of the light an 11 blade was utilized to make the portal for entry for the anterolateral site. The same process was carried out using 11 blade to incise the surface of the skin. A curved mini hemostat was utilized to puncture to the level of the joint capsule and the shaver was introduced. The 2.7 mm shaver was then utilized on aggressive oscillating mode to debride as much of the synovitis that was identified. A burner was then introduced to cauterize any bleeders or shrink any constricture. On the lateral aspect of the ankle, there was a low lying portion of the anterior inferior talofibular ligament referred to as the Urania's ligament that appeared to be causing an impingement at the level of the lower aspect of the tibia-fibular articulation this was resected and cauterized until with dorsiflexion there was no evidence of impingement. Significant constrictures were identified and arthrofibrosis was identified within the lateral gutter this was cleaned with extensive debridement utilizing the shaver and the burner. Following this the joint was inspected and significant improvement of the joint surface was identified. A blunt probe was utilized to test the cartilage and no osteochondral defects were identified. Once again no loose bodies were identified as well. The scope was then retracted. Our subtalar joint arthroscopy began at that point where a small puncture hole removed once again with the 11 blade and carried down to the level of the capsule of the anterior aspect of the posterior facet of the subtalar joint. The portal in which the 3.0 x 4 mm camera was introduced. The shaver was then introduced just distal to the sinus tarsi. The shaver was utilized to resect the adipose tissue within the sinus tarsi revealing the joint with minimal constricture within this joint was debrided utilizing the 2.7 mm shaver. At this time stress was applied to the ankle in anterior drawer-type maneuver demonstrating some instability. Decision was made to make an incision in order to address both the peroneal tendons and also the lateral ankle ligaments at this time. Incision was made at the posterior lateral aspect of the fibula carrying down to the anterior process of the calcaneus. Dissection was carried down utilizing a combination of blunt and sharp dissection making sure not to damage any neurovascular structures along the way. The peroneal tendons were identified with a significant amount of synovitis leading into the superior peroneal retinaculum which was attached. However impingement with the tenosynovitis at the shared slip was identified and resected. Above the superior peroneal retinaculum there was a low lying muscle belly that when the foot was pulled into and inverted in plantar flex position the muscle belly slipped within the superior peroneal retinaculum. The low lying muscle belly was then resected from this site. The range of motion was once again tested and deemed to be adequate. Following this lateral ankle stabilization took place. Careful dissection was carried out to the intersection of where the body and the neck of the talus meet laterally. Under direct visualization of fluoroscopy and direct visualization, a 2.9 JuggerKnot was introduced with BroadBand into the talar body making sure not to damage the posterior facet of the calcaneus or the talus, this was anchored and then two - 4.5 JuggerKnots were utilized to repair the anterior talofibular ligament with the foot held in an everted and dorsiflexed position. Following the repair and the use of the internal brace, stress views were once again taken demonstrating improvement. Following this copious amounts of sterile saline were utilized to flush the surgical site. 4-0 Monocryl was utilized to coapt the subcutaneous edges of the skin and then the skin was everted in a horizontal mattress-type fashion utilizing 3-0 Nylon. A dressing consisting of Betadine, Adaptic, 4x4, Kerlix and a well-padded posterior splint was applied to the patient's left lower extremity with the foot orthogonal with slight eversion relative to the longitudinal axis of the leg. The patient then was reversed from anesthesia and returned to the postoperative anesthesia care unit with vital signs stable and vascular status intact. The patient handled the anesthesia as well as the procedure without significant complication. Postoperative orders as indicated in the patient's discharge chart.
== END 2023-06-29 21:20 | disposition home or self-care (01) ==
LOC: SDC 13:05
PROVIDERS: ATTEND Podiatrist Foot & Ankle Surgery
DX: M25.472 Effusion, left ankle (principal); M25.572 Pain in left ankle and joints of left foot; M25.48 Effusion, other site; M79.672 Pain in left foot; M65.9 Synovitis and tenosynovitis, unspecified; M25.372 Other instability, left ankle; S86.312A Strain of muscle(s) and tendon(s) of peroneal muscle group at lower leg level, left leg, initial encounter
CPT/HCPCS: 27658; 27680; 27698; 29898; 29907; 36415; 73610; 76000; 80053; 81025; 85027; J0171; J0690; J1100; J1885; J2250; J2371; J2405; J2704; J3010; A9270-GY

== ENCOUNTER 2023-09-07 13:57 | Emergency (ER) | payer BC ==
--- NOTE | 2023-09-07 14:31 | ERPHSYRPT ---
- History of Present Illness Time Seen by Provider: 09/07/23 14:36 Historian: patient Exam Limitations: no limitations Physician History: Patient 28-year-old female presents to our ED for IV fluids. Patient has been experiencing abdominal pain since August 17. Patient has a history of cholecystectomy. Pain increased over the past couple days.. Patient followed up at an urgent care. Laboratory work-up was done. Patient was discharged home. Patient was advised to come to our ED if she felt she needed IV fluids. Patient admits that she has been experiencing some diarrhea as well. No other symptomology. Symptoms are mild to moderate in intensity. No specific worsening improving factors. Patient voices no other complaints or concerns at this time. Portions of this note were created with voice recognition technology. There may be grammatical, spelling, punctuation or sound alike errors Timing/Duration: week(s) (3 weeks) Activities at Onset: none Quality: aching (Pain mostly in the epigastrium right upper quadrant and right periumbilical.) Abdominal Pain Onset Location: RUQ, epigastric, other (Mild right side periumbilical pain) Pain Radiation: no radiation Severity of Pain-Max: moderate Severity of Pain-Current: mild Modifying Factors: Improves With: nothing Associated Symptoms: diarrhea Previous symptoms: same symptoms as today Allergies/Adverse Reactions: fentanyl Allergy (Verified 09/07/23 14:12) Hives hives possibly from fentanyl after surgery as a 7 year old Home Medications: Cetirizine HCl [Zyrtec] 10 mg PO DAILY 06/25/23 [History] Gabapentin [Neurontin ] 1 cap PO HS 09/07/23 [History] Nitrofurantoin Macrocrystal [Nitrofurantoin] 1 tab PO BID 09/07/23 [History] Omeprazole 1 cap PO DAILY 09/07/23 [History] Ondansetron [Ondansetron Odt ] 1 tab PO Q6HPRN PRN 09/07/23 [History] Sertraline HCl [Zoloft] 1 tab PO DAILY 09/07/23 [History] Hx Tetanus, Diphtheria Vaccination/Date Given: Yes Hx Influenza Vaccination/Date Given: Yes Hx Pneumococcal Vaccination/Date Given: No Travel Risk - Vaccine Status Have you recieved a Covid-19 vaccination: No - Review of Systems Constitutional: No Symptoms, No Fever, No Chills Eyes: No Symptoms Ears, Nose, & Throat: No Symptoms Respiratory: No Symptoms, No Cough, No Dyspnea Cardiac: No Symptoms, No Chest Pain, No Edema, No Syncope Abdominal/Gastrointestinal: No Symptoms, No Abdominal Pain, No Nausea, No Vomiting, No Diarrhea Genitourinary Symptoms: No Symptoms, No Dysuria Musculoskeletal: No Symptoms, No Back Pain, No Neck Pain Skin: No Symptoms, No Rash Neurological: No Symptoms, No Dizziness, No Focal Weakness, No Sensory Changes Psychological: No Symptoms Endocrine: No Symptoms Hematologic/Lymphatic: No Symptoms Immunological/Allergic: No Symptoms All Other Systems: Reviewed and Negative - Past Medical History Pertinent Past Medical History: Yes Neurological History: No Pertinent History ENT History: No Pertinent History Cardiac History: No Pertinent History Respiratory History: No Pertinent History Endocrine Medical History: No Pertinent History Musculoskeletal History: Osteoporosis, Other GI Medical History: No Pertinent History History: No Pertinent History Psycho-Social History: Anxiety Female Reproductive Disorders: Other Other Medical History: NO OTHER SIGNIFICANT MEDICAL HX EXCEPT THIS INJURY. - Past Surgical History Past Surgical History: Yes Gastrointestinal: Cholecystectomy Female Surgical History: Section Other Surgical History: c section x2. tonsils and adnoids. - Social History Smoking Status: Never smoker Exposure to second hand smoke: Yes Drug Use: none Patient Lives Alone: No - Nursing Vital Signs Nursing Vital Signs: Initial Vital Signs Temperature 98.4 F 09/07/23 14:26 Pulse Rate 87 09/07/23 14:26 Respiratory Rate 17 09/07/23 14:26 Blood Pressure 126/88 09/07/23 14:26 O2 Sat by Pulse Oximetry 99 09/07/23 14:26 Pain Scale Pain Intensity 4 - Physical Exam General Appearance: no apparent distress, alert Eye Exam: PERRL/EOMI, eyes nml inspection Ears, Nose, Throat Exam: normal ENT inspection, pharynx normal, moist mucous membranes Neck Exam: normal inspection, non-tender, supple, full range of motion Respiratory Exam: normal breath sounds, lungs clear, airway intact, No respiratory distress Cardiovascular Exam: regular rate/rhythm, normal heart sounds, normal peripheral pulses Gastrointestinal/Abdomen Exam: soft, tenderness (Some tenderness epigastric region right upper quadrant and right periumbilical region), No mass Back Exam: normal inspection, normal range of motion, No CVA tenderness, No vertebral tenderness Extremity Exam: normal inspection, normal range of motion, pelvis stable Neurologic Exam: alert, oriented x 3, cooperative, normal mood/affect, nml cerebellar function, sensation nml, No motor deficits Skin Exam: normal color, warm, dry SpO2 Interpretation: normal SpO2: 87 O2 Delivery: Room Air - Course Nursing assessment & vital signs reviewed: Yes - CT Exams Abdomen/Pelvis CT Interpretation: Tele-radiologist Report (Bilateral nephrolithiasis, left ovarian cyst, splenic calcifications,) Ordered Tests: Active Orders 24 hr Category Date Time Status IV Insertion STAT Care 09/07/23 14:25 Active ABDOMEN AND PELVIS W/0 CONTRAS [CT] Stat Exams 09/07/23 14:28 Completed HCG QUALITATIVE, URINE Stat Lab 09/07/23 14:37 Completed UA W/RFX UR CULTURE Stat Lab 09/07/23 14:37 Completed Medication Summary Discontinued Medications Generic Name Dose Route Start Last Admin Trade Name Freq PRN Reason Stop Dose Admin Sodium Chloride 1,000 mls @ 999 mls/hr 09/07/23 14:25 09/07/23 15:49 Sodium Chloride 0.9% 1000 Ml IV 09/07/23 15:25 Infused .Q1H1M STA Infusion Sodium Chloride Confirm 09/07/23 14:42 Sodium Chloride 0.9% 1000 Ml Administered 09/07/23 14:43 Dose 1,000 mls @ ud .ROUTE .STK-MED ONE Lab/Rad Data: Laboratory Results 09/07/23 09/07/23 Range/Units 14:37 14:37 Urine Color Yellow (Yellow) Urine Appearance Clear (Clear) Urine pH 7.0 (4.6-8.0) Ur Specific [place] <=1.005 (1.005-1.030) Urine Protein Negative (Negative) Urine Glucose (UA) Negative (Negative) mg/dL Urine Ketones Negative (Negative) Urine Blood Negative (Negative) Urine Nitrite Negative (Negative) Urine Bilirubin Negative (Negative) Urine Urobilinogen 0.2 (0.2) mg/dL Ur Leukocyte Esterase Negative (Negative) U Hyaline Cast (Auto) NONE SEEN (0-2) /LPF Urine Microscopic RBC 0-2 (0-5) /HPF Urine Microscopic WBC 0-2 (0-5) /HPF Ur Epithelial Cells None Seen (None Seen) /HPF Urine Bacteria None Seen (None Seen) /HPF Urine Culture Reflexed NO (NO) Urine HCG, Qual NEGATIVE (NEGATIVE) - Progress Progress: improved Progress Note: 28-year-old female presents to our ED for evaluation of abdominal pain for a month. CT abdomen pelvis reveals bilateral nephrolithiasis. There is a small left ovarian cyst. Urinalysis negative for UTI. hCG negative. Patient received a liter of fluids. She feels well. Patient extremity for discharge. Outside laboratory work-up not repeated. No indication for further work-up at this time. Will discharge home. Patient is scheduled for a EGD and colonoscopy on September 23. This testing was ordered by her GI doctor. The results will be sent to her GI doctor. We will discharge patient at this point. She voices no other complaints or concerns at this time. Portions of this note were created with voice recognition technology. There may be grammatical, spelling, punctuation or sound alike errors Complexity of problems addressed is moderate acute complicated No critical care time Complexity of data reviewed and analyzed is moderate. Test ordered test reviewed. Results analyzed and correlated clinically with history and physical exam. Risk of complication and or risk of morbidity/mortality of patient management is low Vital stable. Time spent to discharge patient approximately 20 minutes. Plan of care established for shared decision making. No social determinants of health present to impede follow-up. Portions of this note were created with voice recognition technology. There may be grammatical, spelling, punctuation or sound alike errors 09/07/23 16:10 Counseled pt/family regarding: lab results, diagnosis, need for follow-up, rad results - Departure Departure Disposition: Home Clinical Impression: Nephrolithiasis, Ovarian cyst, Calcified splenic granuloma, Abdominal pain, Diarrhea Condition: Stable Critical Care Time: No Referrals: [facility] [Primary Care Provider] - Follow up/PCP as directed Additional Instructions: Discharge/Care Plan MELANIENI SHANNAN was seen on 09/07/23 in the Emergency Room. The patient was counseled regarding Diagnosis,Lab results, Imaging studies, need for follow up and when to return to the Emergency Room. Prescriptions given: Discharge Note I have spoken with the patient and/or caregivers. I have explained the patient's condition, diagnosis and treatment plan based on the information available to me at this time. I have answered the patient's and/or caregiver's questions and addressed any concerns. The patient and/or caregivers have as good understanding of the patient's diagnosis, condition and treatment plan as can be expected at this point. The vital signs have been stable. The patient's condition is stable and appropriate for discharge from the emergency department. The patient will pursue further outpatient evaluation with the primary care physician or other designated or consulting physician as outlined in the discharge instructions. The patient and/or caregivers are agreeable to this plan of care and follow-up instructions have been explained in detail. The patient and/or caregivers have received these instruction. The patient/and or caregivers are aware that any significant change in condition or worsening of symptoms should prompt an immediate return to this or the closest emergency department or call 911.
[2023-09-07 14:39] VITALS: RESP 17; TEMP 98.4
[2023-09-07] MEDS ORDERED: Sodium Chloride 0.9% 1000 ML 1,000 ML ONE (14:42)
[2023-09-07 14:45] LABS: Appearance Clear (Clear); Bacteria None Seen /HPF (None Seen); Bilirubin Negative (Negative); Blood Negative (Negative); Epithelial Cells None Seen /HPF (None Seen); Glucose, Urine Negative (Negative); Hyaline Casts NONE SEEN /LPF (0-2); Ketones Negative (Negative); Leukocyte Esterase Negative (Negative); Nitrite Negative (Negative); Protein,Urine Dip Negative (Negative); RBC 0-2 /HPF (0-5); Specific Gravity <=1.005 (1.005-1.030); Urobilinogen 0.2 mg/dL (0.2); WBC 0-2 /HPF (0-5)
[2023-09-07] MEDS: Sodium Chloride 0.9% 1000 ML 1,000 ML IV STA (14:45)
[2023-09-07 14:46] LABS: HCG URINE TEST NEGATIVE (NEGATIVE)
[2023-09-07 14:48] LABS: ADD URINE CULTURE? NO (NO)
--- NOTE | 2023-09-07 15:11 | XRAY ---
Indication: Epigastric pain. Nausea and diarrhea. Multiple contiguous axial images obtained through the abdomen and pelvis without contrast. Comparison: November 28, 2019 Lung bases remain clear. Heart not enlarged. Noncontrasted stomach and bowel loops nonobstructed with normal appendix. Radiopacities throughout the colon presumed ingested medication/bismuth or barium. Interval cholecystectomy. New nonobstructing 6 mm right and 3 mm left renal calculus. Again 2.5 cm left ovary cyst and a few incidental splenic calcified granulomas. Previous IUD has been removed. No free fluid/air. Remaining liver, pancreas, spleen, adrenal glands, kidneys, ureters, bladder, uterus, and aorta are unremarkable for noncontrast exam. Osseous structures intact. Impression: 1. New nonobstructing bilateral renal microcalculi. 2. Again incidental 2.5 cm left ovary cyst and splenic calcified granulomas. 3. Remaining CT abdomen/pelvis without contrast exam continues to be negative.
[2023-09-07 16:09] VITALS: BP 122/64; PULSE 77
[2023-09-07 16:13] VITALS: O2SAT 87
== END 2023-09-07 16:09 | disposition home or self-care (01) ==
LOC: ED 13:57
DX: N20.0 Calculus of kidney (principal); N83.202 Unspecified ovarian cyst, left side; R93.89 Abnormal findings on diagnostic imaging of other specified body structures; R10.9 Unspecified abdominal pain; R19.7 Diarrhea, unspecified; Z79.899 Other long term (current) drug therapy; Z28.310 Unvaccinated for COVID-19
CPT/HCPCS: 36000; 74176; 81001; 81025; 96360; 99284